=== PATIENT | male | born 1950 | race Two or more races ===

== ENCOUNTER 2019-12-10 16:07 | Inpatient (IN) | payer OTHER ==
[~2019-12-10] VITALS: Ht 182.9 cm; Wt 98.0 kg
[2020-01-14] MEDS ORDERED: TOPROL XL25 M1 PO (11:02)
[2020-01-14] MEDS ORDERED: APRESOLINE 10MG10 MG PO (11:02)
[2020-01-14] MEDS ORDERED: CARDURA1 MG PO (11:03)
[2020-01-14] MEDS ORDERED: GABAPENTIN300 M2 PO (11:03)
[2020-01-14] MEDS ORDERED: ATORVASTATIN CA20 MG PO (11:03)
[2020-01-14] MEDS ORDERED: GLIPIZIDE-METF1 EAC1 PO (11:03)
[2020-01-14] MEDS ORDERED: NIFE60TA3 PO (11:04)
[2020-01-14] MEDS ORDERED: AVALIDE 300-121 EACH PO (11:04)
[2020-01-23] MEDS ORDERED: HYDRALAZINE HCL50 MG PO (07:59)
[2020-01-23] MEDS ORDERED: VERAPAMIL ER180 MG PO (08:00)
[2020-01-23] MEDS ORDERED: NIFEDIPINE ER30 M1 PO (08:00)
== END 2020-01-23 12:36 | disposition home or self-care (01) | DRG 708 ==
LOC: SURH 01-21 05:45 → O/R 01-21 05:45 → SURH 01-21 09:00
PROVIDERS: ADMIT Urology; ATTEND Urology
PROC: 07TC0ZZ Resection of Pelvis Lymphatic, Open Approach (ICD-10-PCS; 2020-01-21)
PROC: 0VT00ZZ Resection of Prostate, Open Approach (ICD-10-PCS; principal; 2020-01-21 09:00)
DX: C61 Malignant neoplasm of prostate (principal); D36.0 Benign neoplasm of lymph nodes; I10 Essential (primary) hypertension

== ENCOUNTER 2020-01-25 17:13 | Emergency (ER) | payer OTHER ==
[~2020-01-25] VITALS: Ht 177.8 cm; Wt 216.0 kg
[~2020-01-25 17:13] MED LIST: APRESOLINE 10MG10 MG PO; ATORVASTATIN CA20 MG PO; AVALIDE 300-121 EACH PO; CARDURA1 MG PO; GABAPENTIN300 M2 PO; GLIPIZIDE-METF1 EAC1 PO; HYDRALAZINE HCL50 MG PO; NIFE60TA3 PO; NIFEDIPINE ER30 M1 PO; TOPROL XL25 M1 PO; VERAPAMIL ER180 MG PO
== END 2020-01-27 09:29 | disposition home or self-care (01) ==
LOC: ER 17:13 → SURH 01-26 07:48 → SEC-K 01-26 07:48 → ER 01-26 07:48 → SURH 01-27 10:37 → SEC-K 01-27 10:37
DX: D50.0 Iron deficiency anemia secondary to blood loss (chronic) (principal); D63.0 Anemia in neoplastic disease; C61 Malignant neoplasm of prostate; I10 Essential (primary) hypertension; R31.0 Gross hematuria; Z20.828 Contact with and (suspected) exposure to other viral communicable diseases; Z98.890 Other specified postprocedural states

== ENCOUNTER 2020-02-01 01:40 | Emergency (ER) | payer OTHER ==
[~2020-02-01] VITALS: Ht 177.8 cm; Wt 98.0 kg
[2020-02-01] MEDS ORDERED: CIPRO500 MG PO (02:01)
[2020-02-01] MEDS ORDERED: KETO10TA2 PO (02:01)
== END 2020-02-01 08:00 | disposition home or self-care (01) ==
LOC: ER 01:40
DX: N39.0 Urinary tract infection, site not specified (principal); R31.0 Gross hematuria

== ENCOUNTER → 2020-02-07 | Outpatient (CLI) | payer OTHER ==
[~2020-02-07] MED LIST changes: +CIPRO500 MG PO; +KETO10TA2 PO
== END | disposition home or self-care (01) ==
LOC: TOM 10:28
PROVIDERS: ATTEND Urology
DX: R19.09 Other intra-abdominal and pelvic swelling, mass and lump (principal)

== ENCOUNTER 2020-02-20 10:57 | Outpatient (CLI) | payer OTHER | END 2020-02-20 11:00 | disposition home or self-care (01) | LOC: RX STUDY 10:57 | PROVIDERS: ATTEND Urology | DX: C61 Malignant neoplasm of prostate (principal) | CPT/HCPCS: 51600; 74430; A9698 ==

== ENCOUNTER 2020-04-21 08:52 | Outpatient (CLI) | payer OTHER | END 2020-04-21 09:05 | disposition home or self-care (01) | LOC: TOM 08:52 | PROVIDERS: ATTEND Urology | DX: C61 Malignant neoplasm of prostate (principal) | CPT/HCPCS: 74178; Q9965 ==

== ENCOUNTER 2024-01-20 05:19 | Day surgery (SDC) | payer OTHER ==
[2024-01-11 10:26] VITALS: BP 180/80
[2024-01-11 10:36] LABS: HEMATOCRIT 36.5 % (39.0-48.0); HEMOGLOBIN 12.3 g/dL (13-16.00); MEAN CELL VOLUME 90.5 fL (80.0-100.00); MEAN CORPUSCULAR HEMOGLOBIN 30.4 pg (27.00-32.0); MEAN CORPUSCULAR HGB CONC 33.6 g/dl (32.0-36.0); PLATELET COUNT 169 K/uL (150-450); RED BLOOD COUNT 4.04 M/uL (4.00-6.00); RED CELL DISTRIBUTION WIDTH 14.8 % (11.5-14.5)
[2024-01-11 10:39] LABS: URINE APPEARANCE Clear; URINE BILIRRUBIN Negative (NEGATIVE); URINE BLOOD Negative; URINE COLOR Yellow; URINE GLUCOSE Negative (NEGATIVE); URINE KETONE Trace (NEGATIVE); URINE LEUKOCYTE Negative; URINE NITRATE Negative; URINE PROTEIN 30 (NEGATIVE); URINE UROBILINOGEN 0.2 E.U./dl
[2024-01-11 10:43] LABS: URINE RBC 20.1 uL (0.0-20.8)
[2024-01-11 10:49] LABS: URINE EPITHELIAL CELLS 1.2 uL (0.0-38.8); URINE WBC 0.9 uL (0.0-23.2)
[2024-01-11 10:53] LABS: INR 1.01; PARTIAL THROMBOPLASTIN TIME 27.1 SECONDS (22.0-34.0)
[2024-01-11 11:00] LABS: ALBUMIN 4.2 gm/dL (3.4-5.0); BILIRUBIN TOTAL 0.41 mg/dL (0.3-1.2); CALCIUM 9.3 mg/dL (8.5-10.1); CREATININE SERUM 0.92 mg/dL (0.70-1.30); GFR 80.42; GLOBULINA 2.8 G/DL (2.4-3.5); PHOSPHOROUS 3.4 mg/dL (2.5-4.9); POTASSIUM 4.97 mEq/L (3.5-5.1)
[~2024-01-20] VITALS: Ht 182.9 cm; Wt 90.7 kg
[2024-01-20] MEDS ORDERED: COLACE100 MG PO (11:06)
[2024-01-20] MEDS ORDERED: NEURONTIN300 MG PO (11:06)
[2024-01-20] MEDS ORDERED: ACETAMINOPHEN500 M2 PO (11:06)
[2024-01-20] MEDS ORDERED: HEMOSTATIC MATRIX 1 KIT KIT TOP ONE (11:30)
[2024-01-20] MEDS ORDERED: LIDOCAINE HCL 1%/EPINEPHRINE 20ML VIAL IJ ONE (11:30)
[2024-01-20] MEDS ORDERED: CEFTRIAXONE SODIUM 2,000 MG VIAL IV ONE (11:30)
[2024-01-20] MEDS ORDERED: POVIDONE-IODINE 118 ML BOTT TOP ONE (11:30)
[2024-01-20] MEDS ORDERED: METRONIDAZOLE/SODIUM CHLORIDE 500 MG/100 ML PIGGYBACK IV ONE (11:30)
[2024-01-20] MEDS ORDERED: BUPIVACAINE HCL/PF 0.25% 30ML VIAL InF ONE (11:30)
[2024-01-20] MEDS ORDERED: ENALAPRILAT DIHYDRATE 1.25 MG/ML VIAL IV ONE ×2 (13:35→14:05)
== END 2024-01-20 15:00 | disposition home or self-care (01) ==
LOC: CIR.AMB 05:19
PROVIDERS: ATTEND Surgery
DX: D12.8 Benign neoplasm of rectum (principal); K64.4 Residual hemorrhoidal skin tags; K62.89 Other specified diseases of anus and rectum